=== PATIENT | male | born 1955 | race Caucasian/White ===

== ENCOUNTER → 2021-06-15 | Outpatient (CLI) | payer BC ==
--- NOTE | 2021-06-15 18:58 | MR ---
EXAMINATION TYPE: MR shoulder RT wo con DATE OF EXAM: 06/15/2021 COMPARISON: None HISTORY: Tendonopathy of Rt rotator cuff, sharp stabbing pain Rt shoulder Multiplanar multiecho imaging of the right shoulder without contrast. There is mild shoulder joint effusion. There is fluid around the biceps tendon. The subscapularis ten don is intact. The glenoid janis appear intact. Humeral head is intact. There is extensive abnormal increased signal in the supraspinatus tendon at the attachment on the gre ater tuberosity of the humerus. There is partial retraction. AC joint is intact. No significant subac romial impingement. The infraspinatus tendon is intact. No evidence of focal bone destruction. There is minor spurring at the AC joint. IMPRESSION: Large rotator cuff with partial retraction of the supraspinatus tendon. Mild shoulder joint effusion and subdeltoid effusion.
== END | disposition home or self-care (01) ==
LOC: RADMRIMAIN 09:38
PROVIDERS: ATTEND Physician Assistant
DX: M25.411 Effusion, right shoulder (principal)

== ENCOUNTER → 2021-07-18 | Outpatient (CLI) | payer BC ==
[2021-07-18 19:07] LABS: Anion Gap 10.4 mmol/L (10.00-18.00); Carbon Dioxide 26.6 mmol/L (20.0-27.5); Potassium 4.6 mmol/L (3.5-5.5)
[2021-07-18 19:34] LABS: Basophils # (A) 0.06 X 10*3/uL (0.00-0.10); Basophils % (A) 0.8 %; Eosinophils # (A) 0.12 X 10*3/uL (0.04-0.35); Eosinophils % (A) 1.6 %; HCT 46.8 % (39.6-50.0); HGB 15.5 g/dL (13.0-17.0); Lymphocytes # (A) 2.22 X 10*3/uL (0.90-5.00); Lymphocytes % (A) 28.9 %; MCH 32.9 pg (27.0-32.0); MCHC 33.1 g/dL (32.0-37.0); MCV 99.4 fL (80.0-97.0); Mean Platelet Volume 11.6 fL (9.5-12.2); Monocytes # (A) 0.55 X 10*3/uL (0.20-1.00); Monocytes % (A) 7.2 %; NRBC Per 100 WBC 0 /100 WBCS (0.0-0.0); Neutrophils # (A) 4.65 X 10*3/uL (1.80-7.70); Neutrophils % (A) 60.5 %; Platelet Count 146 X 10*3/uL (140-440); RBC 4.71 X 10*6/uL (4.40-5.60); RDW 13.2 % (11.5-14.5); WBC 7.68 X 10*3/uL (4.50-10.00)
== END | disposition home or self-care (01) ==
LOC: LABPAT 11:18
PROVIDERS: ATTEND Orthopaedic Surgery
DX: Z01.818 Encounter for other preprocedural examination (principal); M75.41 Impingement syndrome of right shoulder; I45.10 Unspecified right bundle-branch block; I44.4 Left anterior fascicular block; I45.2 Bifascicular block; R94.31 Abnormal electrocardiogram [ECG] [EKG]
CPT/HCPCS: 80051; 85025; 93005

== ENCOUNTER → 2021-08-22 | Outpatient (CLI) | payer BC ==
--- NOTE | 2021-08-22 11:45 | CA ---
Exercise Stress Test Report Name: Robert Chaves Exam Date: 08/22/2021 09:06 Exam Location: [place] Stress Ht (in): 66 Wt (lb): 230 BSA: 2.12 Ordering Phys: Malissa Macario DO Referring Phys: Ginger Simon PAC Technologist: Robert Ruth Age: 66 Gender: M : 1955 Procedure CPT: Indications: I45.10,I51.7 ICD-10 Codes: Patient History: RBBB Medications: ALEVE,,,,,, ES TYLENOL,,,,, Meds past 24 hrs: Pretest Chest Pain: STRESS TEST Edin Protocol Exercise Duration (min:sec): 03:[address] Depressions (mm): Angina Score: Valdes Score: Resting HR (bpm): 116 Peak HR (bpm): 138 Resting BP (mmHg): 128 / 83 Peak BP (mmHg): 186 / 77 MPHR: 156 Target HR: 133 % MPHR: 88 METS: 4.7 Total Dose: Peak Dose: Atropine: Double Product: 09381 BP Response: Stress Termination: Dyspnea Maximum heart rate obtained Stress Symptoms: DIFFICULTY IN BREATHING Stress Summary: ECG ANALYSIS Resting ECG: Sinus mechanism, right bundle branch block, left axis deviation Stress ECG: No acute ST segment changes CONCLUSIONS 1. Poor exercise tolerance 2. Nondiagnostic electrocardiographic stress test secondary to baseline EKG abnormality 3. If clinically indicated and imaging stress test will be helpful. Dr. Marine Regalado MD (Electronically Signed) Final Date: 22 August 2021 11:44
== END | disposition home or self-care (01) ==
LOC: RADNMMAIN 07:59
PROVIDERS: ATTEND Family Medicine
DX: I45.10 Unspecified right bundle-branch block (principal)
CPT/HCPCS: 93017

== ENCOUNTER → 2021-09-19 | Outpatient (CLI) | payer BC ==
[2021-09-19 14:41] LABS: Anion Gap 11.9 mmol/L (10.00-18.00); Carbon Dioxide 25.8 mmol/L (20.0-27.5); HCT 44.1 % (39.6-50.0); Mean Platelet Volume 11.4 fL (9.5-12.2); NRBC Per 100 WBC 0 /100 WBCS (0.0-0.0); Platelet Count 135 X 10*3/uL (140-440); Potassium 4.6 mmol/L (3.5-5.5); RBC 4.41 X 10*6/uL (4.40-5.60); RDW 13.5 % (11.5-14.5); WBC 7.31 X 10*3/uL (4.50-10.00)
== END | disposition home or self-care (01) ==
LOC: LABWHC1 08:48
PROVIDERS: ATTEND Orthopaedic Surgery
DX: Z01.812 Encounter for preprocedural laboratory examination (principal); M75.41 Impingement syndrome of right shoulder
CPT/HCPCS: 36415; 80051; 85027